=== PATIENT | female | born 1985 | race Caucasian/White ===

== ENCOUNTER 2020-09-19 10:08 | Outpatient (REF) | payer OTHER, MEDICAID, SELFPAY ==
[2020-09-20 08:24] LABS: HBsAGNum1 0.13 S/CO (0.00-0.99); Hepatitis B Surface Antigen Negative (Negative); ~HepC Num1 0.07 S/CO (0.00-0.79); ~Hepatitis C Antibody Nonreactive (Nonreactive)
[2020-09-20 08:27] LABS: HIV AB/AG Nonreactive (Nonreactive); HIV Num 1 0.08 S/CO (0.00-0.99)
[2020-09-20 08:32] LABS: Syphilis Screen Nonreactive (Nonreactive)
[2020-09-20 08:51] LABS: BV Int Neg Control Negative (Negative); BV Int Pos Control Positive (Positive)
[2020-09-21 02:42] LABS: C. trachomatis RNA TMA NOT DETECTED (NOT DETECTED); N. gonorrhoeae RNA TMA NOT DETECTED (NOT DETECTED)
== END 2020-09-19 10:09 | disposition home or self-care (01) ==
LOC: HO.LAB 10:08
PROVIDERS: PCP Pediatrics; Referring Provider Pediatrics; Visit Provider Advanced Practice Midwife
DX: Z20.2 Contact with and (suspected) exposure to infections with a predominantly sexual mode of transmission (principal); Z11.3 Encounter for screening for infections with a predominantly sexual mode of transmission
CPT/HCPCS: 86780; 86803; 87340; 87389; 87480; 87491; 87510; 87591; 87660

== ENCOUNTER 2020-10-18 14:28 | Outpatient (REF) | payer OTHER, MEDICAID, SELFPAY ==
--- NOTE | 2020-10-18 | US_ITS ---
EXAMINATION: MM DIAGNOSTIC DIGITAL BREAST TOMOSYNTHESIS, BILATERAL US DIAGNOSTIC ULTRASOUND BREAST, LEFT CLINICAL INFORMATION: 35-year-old with area of palpable concern noted at clinical exam 11:00 position 8 cm from nipple. No palpable mass noted by patient. No discharge. No family history breast cancer. TC score 9%. COMPARISON: None (current study represents initial baseline exam). TECHNIQUE: Digital breast tomosynthesis is performed in both the craniocaudal and mediolateral oblique views along with computer-aided detection (CAD). Synthesized 2D images are generated from the tomosynthesis. Ultrasound left breast is targeted to the area of clinical concern. Grayscale imaging and color Doppler are performed without and with harmonics. Patient has no palpable area to direct attention to at time of imaging. FINDINGS: There are scattered areas of fibroglandular density (ACR BI-RADS breast composition Category b). Breast tissue composition borders on predominantly fatty. Background stromal densities are normal. There is no mass or architectural abnormality. No abnormal calcifications. The axilla and skin contours are unremarkable. Ultrasound left breast demonstrates no cystic or solid mass, architectural abnormality, or focal duct ectasia. No skin thickening or edema tracking in soft tissue planes. Results are discussed with the patient at time of visit. US/US breast LT limited IMPRESSION: 1. No mammographic evidence of malignancy. 2. Unremarkable targeted left breast ultrasound. ASSESSMENT: BI-RADS 1: Negative RECOMMENDATION: 1. Patient should be managed based on the clinical impression. If clinically indicated, further evaluation may be considered with surgical consult. Decision to proceed with biopsy should be based on clinical grounds and degree of clinical concern. 2. Otherwise, routine annual screening mammography, beginning age 40, or earlier as clinical risk factors warrant. This patient's information was entered into a reminder system with a target due date for their next mammogram.
--- NOTE | 2020-10-18 14:33 | MM_ITS ---
EXAMINATION: MM DIAGNOSTIC DIGITAL BREAST TOMOSYNTHESIS, BILATERAL US DIAGNOSTIC ULTRASOUND BREAST, LEFT CLINICAL INFORMATION: 35-year-old with area of palpable concern noted at clinical exam 11:00 position 8 cm from nipple. No palpable mass noted by patient. No discharge. No family history breast cancer. TC score 9%. COMPARISON: None (current study represents initial baseline exam). TECHNIQUE: Digital breast tomosynthesis is performed in both the craniocaudal and mediolateral oblique views along with computer-aided detection (CAD). Synthesized 2D images are generated from the tomosynthesis. Ultrasound left breast is targeted to the area of clinical concern. Grayscale imaging and color Doppler are performed without and with harmonics. Patient has no palpable area to direct attention to at time of imaging. FINDINGS: There are scattered areas of fibroglandular density (ACR BI-RADS breast composition Category b). Breast tissue composition borders on predominantly fatty. Background stromal densities are normal. There is no mass or architectural abnormality. No abnormal calcifications. The axilla and skin contours are unremarkable. Ultrasound left breast demonstrates no cystic or solid mass, architectural abnormality, or focal duct ectasia. No skin thickening or edema tracking in soft tissue planes. Results are discussed with the patient at time of visit. MM/MM tomosynthesis diagnostic BI IMPRESSION: 1. No mammographic evidence of malignancy. 2. Unremarkable targeted left breast ultrasound. ASSESSMENT: BI-RADS 1: Negative RECOMMENDATION: 1. Patient should be managed based on the clinical impression. If clinically indicated, further evaluation may be considered with surgical consult. Decision to proceed with biopsy should be based on clinical grounds and degree of clinical concern. 2. Otherwise, routine annual screening mammography, beginning age 40, or earlier as clinical risk factors warrant. This patient's information was entered into a reminder system with a target due date for their next mammogram.
== END 2020-10-18 14:29 | disposition home or self-care (01) ==
LOC: HO.MAMMO 14:28
PROVIDERS: Visit Provider Advanced Practice Midwife
DX: N63.22 Unspecified lump in the left breast, upper inner quadrant (principal)
CPT/HCPCS: 76642; 77062; 77066

== ENCOUNTER → 2020-10-30 13:33 | Outpatient (BNVA) | payer OTHER, MEDICAID, SELFPAY | PROVIDERS: PCP Pediatrics; Visit Provider Advanced Practice Midwife | DX: Z30.430 Encounter for insertion of intrauterine contraceptive device (principal) | CPT/HCPCS: 81025 ==

== ENCOUNTER → 2020-12-11 15:08 | Outpatient (BNVA) | payer OTHER, MEDICAID, SELFPAY | PROVIDERS: PCP Pediatrics; Visit Provider Advanced Practice Midwife | DX: Z30.432 Encounter for removal of intrauterine contraceptive device (principal); Z30.011 Encounter for initial prescription of contraceptive pills; N92.1 Excessive and frequent menstruation with irregular cycle | CPT/HCPCS: 58301 ==

== ENCOUNTER 2021-02-23 10:01 | Outpatient (REF) | payer OTHER, MEDICAID, SELFPAY ==
[2021-02-24 07:30] LABS: CT PCR NOT DETECTED (Not Detect.); NG PCR NOT DETECTED (Not Detect.)
[2021-02-24 12:50] LABS: BV Int Neg Control Negative (Negative); BV Int Pos Control Positive (Positive)
== END 2021-02-23 10:02 | disposition home or self-care (01) ==
LOC: HO.LAB 10:01
PROVIDERS: Advanced Practice Midwife; Visit Provider Advanced Practice Midwife
DX: Z11.3 Encounter for screening for infections with a predominantly sexual mode of transmission (principal); Z20.2 Contact with and (suspected) exposure to infections with a predominantly sexual mode of transmission; N89.8 Other specified noninflammatory disorders of vagina; B37.3 Candidiasis of vulva and vagina; E66.9 Obesity, unspecified; R60.9 Edema, unspecified; Z86.19 Personal history of other infectious and parasitic diseases
CPT/HCPCS: 87480; 87491; 87510; 87591; 87660

== ENCOUNTER → 2021-04-30 12:43 | Outpatient (BNVA) | payer OTHER, MEDICAID, SELFPAY | PROVIDERS: PCP Pediatrics; Visit Provider Advanced Practice Midwife ==

== ENCOUNTER 2022-01-08 15:30 | Outpatient (REF) | payer OTHER, MEDICAID, SELFPAY ==
[2022-01-09 12:10] LABS: BV Int Neg Control Negative (Negative); BV Int Pos Control Positive (Positive)
== END 2022-01-08 15:31 | disposition home or self-care (01) ==
LOC: HO.LAB 15:30
PROVIDERS: PCP Pediatrics; Visit Provider Advanced Practice Midwife
DX: N89.8 Other specified noninflammatory disorders of vagina (principal); K64.9 Unspecified hemorrhoids
CPT/HCPCS: 87480; 87510; 87660

== ENCOUNTER → 2022-02-14 15:15 | Outpatient (BNVA) | payer OTHER, MEDICAID, SELFPAY | PROVIDERS: PCP Pediatrics; Referring Provider Pediatrics; Visit Provider Surgery | DX: K64.8 Other hemorrhoids (principal) | CPT/HCPCS: 46600 ==

== ENCOUNTER 2022-04-09 06:39 | Day surgery (SDC) | payer OTHER, MEDICAID, SELFPAY ==
--- NOTE | 2022-04-08 08:24 | HO.ANESPROP2 ---
Documented by User: Theresa Middleton NP 04/08/22 08:25 HPI - Anesthesia Eval Consult details Narrative: 37yo F for EUA, Hemorrhoidectomy PMFSH Active Problems Active Problems: All Active Problems (Updated 02/14/22 @ 16:00 by Adam Martinez MD) Hemorrhoids with complication (Acute) Hemorrhoids (Acute) Encounter for annual routine gynecological examination (Acute) Edema (Acute) Obesity (BMI 35.0-39.9 without comorbidity) (Acute) Yeast infection involving the vagina and surrounding area (Acute) Hidradenitis suppurativa (Acute) control counseling (Acute) Well woman exam with routine gynecological exam (Acute) Breast lump (Acute) Potential exposure to STD (Acute) Past Medical History Medical History Depression Hemorrhoids with complication Obesity, Class II, BMI 35-39.9 Family History Family History Mother HTN (hypertension) Father HTN (hypertension) Maternal Grandmother HTN (hypertension) Paternal Grandmother Diabetes mellitus Paternal Grandfather Lung cancer Surgical History Surgical History Hx of section Hx of laparoscopic gastric banding Social History Social History Alcohol intake: never Patient Tobacco Use Status: Current someday Tobacco user Tobacco use type: Cigarette Gender identity: Female Meds Allergies Allergy/AdvReac Type Severity Reaction Status Date / Time Sulfa (Sulfonamide Allergy Severe Anaphylaxis Verified 04/09/22 06:44 Antibiotics) Penicillins Allergy Mild HIVES Verified 04/09/22 06:44 Exam Exam Date and Time: April 08, 2022 0824 Assessment and Plan Assessment Anesthesia Assessment: Chart Reviewed Documented by User: Erich Tena MD 04/09/22 15:58 PMF Past Medical History Medical History Depression Hemorrhoids with complication Obesity, Class II, BMI 35-39.9 Family History Family History Mother HTN (hypertension) Father HTN (hypertension) Maternal Grandmother HTN (hypertension) Paternal Grandmother Diabetes mellitus Paternal Grandfather Lung cancer Family history of problems with anesthesia: No Surgical History Surgical History Hx of section Hx of laparoscopic gastric banding History of Problems with Anesthesia: No Social History Social History Alcohol intake: never Patient Tobacco Use Status: Current someday Tobacco user Tobacco use type: Cigarette Gender identity: Female Meds Allergies Allergy/AdvReac Type Severity Reaction Status Date / Time Sulfa (Sulfonamide Allergy Severe Anaphylaxis Verified 04/09/22 06:44 Antibiotics) Penicillins Allergy Mild HIVES Verified 04/09/22 06:44 Exam Airway Mallampati Class: II TM Dist: >3cm Neck ROM: Full Loose/Missing/Broken Teeth: Yes (Fillings ) Heart: S1,S2 Lungs: b/l breath sounds Assessment and Plan Assessment Anesthesia Assessment: Anesthesia Plan Discussed Final Anesthetic Review Family History of Problems with Anesthesia: No History of Problems with Anesthesia: No NPO: Yes ASA Class: II Final Preanesthetic Review: Meds/Allgs Chart Reviewed, Consent Obtained/Reviewed and Anes Risks/Benef Reviewed Patient Risk: Intermediate Procedure Risk: Intermediate Anesthetic Plan Anesthetic Plan: GA Disposition: Standard PACU
[2022-04-09] VITALS (11 sets, daily range): BP systolic 105–134; BP diastolic 54–88; PULSE 47–86; RESP 16–22; TEMP 36.4–37.1; O2SAT 96–100; BMI 37.5
[2022-04-09 06:54] LABS: UPreg QC Valid YES; Urine Pregnancy NEGATIVE (NEGATIVE)
[2022-04-09] MEDS: Lactated Ringers 1,000 ML 100 ML IVCONT (07:00)
--- NOTE | 2022-04-09 07:15 | MHC.SHP ---
Pre-Procedural Eval Section A Date of Service: 04/09/22 Section B Chief Complaint: Other hemorrhoids Details of Present Illness: has had hemorrhoids with worsening discomfort Relevant Family History (Specify if Yes): No Relevant Social History: None Present Medications: see Short Stay Collaborative assessment Medical History: No relevant PMH History of Previous Operations: No relevant previous surgery Allergies: Allergies Allergy/AdvReac Type Severity Reaction Status Date / Time Sulfa (Sulfonamide Allergy Severe Anaphylaxis Verified 04/09/22 06:44 Antibiotics) Penicillins Allergy Mild HIVES Verified 04/09/22 06:44 Review of Systems Sugical H&P ROS: Negative: Constitution, Cardiovascular, Respiratory, Neurological, Psychiatric, Hem-Onc, Allergic/Immunologic, Gastrointestinal, Genitourinary, Musculoskeletal, Integumentary, Endocrine and Eyes/Ears/Nose/Throat Exam Surgical H&P Exam: Normal: HEENT, Normal: Heart, Normal: Lungs, Normal: Extremities, Normal: Abdomen, Normal: Skin and Normal: Neurological Exam Comment: bulky hemorrhoids Plan Diagnosis/Plan: Unchanged I have reviewed the history and physical and performed a pertinent physical examination on my patient. No changes have occurred unless specified.
--- NOTE | 2022-04-09 09:18 | P.OP_ITS ---
Operative Note Operative Note Date of Service: 04/09/22 Narrative: Preop diagnosis: Internal and external hemorrhoids with pain and bleeding Postop diagnosis: The same Procedure: Exam under anesthesia, hemorrhoidectomy x3 columns Surgeon: Adam Martinez MD Patient is a 37 year female with a long history of hemorrhoids since her last . She describes worsening discomfort as well as bleeding from her hemorrhoids. Examination in the office revealed a bulky hemorrhoidal columns the left and right side. She wanted to proceed with hemorrhoidectomy. She understood the technique of the procedure as well as the risks, benefits, and alternatives . She was brought to the operating room and placed in prone geovanna-knife position under general anesthesia via endotracheal tube. The buttocks were retracted with wide tape laterally. The perianal area was prepped and draped in the usual sterile fashion. A surgical time-out was done. The patient was given prophylactic Cefotan. Examination of the anal orifice revealed bulky has external hemorrhoids on the left and right side. I inserted abuse Pham retractor and examined the anal canal circumferentially. These hemorrhoidal columns were noted again with a mix of some internal component. There were no other lesions I applied a Zeng grasper at the hemorrhoidal column on the left to retract this. I made a [id number] of this 8 stitch at the pedicle using chromic 3- 0. I made an incision around this hemorrhoidal column to the perianal skin using blade 15. And excised this hemorrhoidal column above the plane of sphincters with scissors. I closed this incision with a running chromic 3-0 sti tch. Additional hemostatic [id number] sutures were placed The same procedure was duplicated on the hemorrhoidal column on the right side. I again a Zeng grasper was applied to retract this. I made a figure of 8 stitch at the pedicle past the dentate line. I made a decision and this hemorrhoidal column all the way to the perianal skin using blade 15.I excised this column above the plane of sphincters using scissors. I closed the incision with a running chromic 3-0 stitch as well with additional hemostatic sutures were placedt with a [id number] chromic 3-0 as well. A smaller external hemorrhoid was noted anteriorly and this was excised in the same fashion as above Hemostasis was confirmed I proceeded to then place a rolled Gelfoam packing into the anal canal. I infiltrated the perianal area with Marcaine 0.5% for postop analgesia. The procedure was then completed The patient tolerated procedure well. There were no complications noted. Estimated blood loss was about 25 cc The patient was extubated without difficulty and transferred to the recovery room with stable vital signs.
[2022-04-09] MEDS: fentaNYL citrate/PF 100 MCG/2 ML VIAL 25 MCG IVPUSH ×2 (09:43→09:48)
[2022-04-09] MEDS: oxyCODONE HCl Immed Release 5 MG TABLET PO ×2 (09:44→09:46)
[2022-04-09] MEDS: Acetaminophen 325 MG TABLET 650 MG PO (09:45)
== END 2022-04-09 11:55 | disposition home or self-care (01) ==
PROVIDERS: Nurse Practitioner; PCP Pediatrics; Visit Provider Surgery
PROC: (CPT 46260; principal; 2022-04-09 08:10)
DX: K64.8 Other hemorrhoids (principal); K64.4 Residual hemorrhoidal skin tags; E66.8 Other obesity; Z68.38 Body mass index [BMI] 38.0-38.9, adult; F32.A Depression, unspecified; Z98.84 Bariatric surgery status; Z88.0 Allergy status to penicillin; Z88.2 Allergy status to sulfonamides; F17.210 Nicotine dependence, cigarettes, uncomplicated
CPT/HCPCS: 46260; 81025; 88304; J1100; J1885; J2250; J2405; J2795; J3010